=== PATIENT | female | born 2005 | race American Indian/Alaskan Native ===

== ENCOUNTER → 2024-11-23 12:46 | Outpatient (REF) | payer OTHER, SELFPAY | LOC: RAD 12:46 | PROVIDERS: ATTENDING PHYSICIAN Obstetrics & Gynecology | DX: O26.851 Spotting complicating pregnancy, first trimester (principal) | CPT/HCPCS: 76801; 76817 ==

== ENCOUNTER → 2024-12-07 11:02 | Outpatient (REF) | payer OTHER, SELFPAY | LOC: PNTC 11:02 | PROVIDERS: ATTENDING PHYSICIAN Advanced Practice Midwife | DX: Z36.0 Encounter for antenatal screening for chromosomal anomalies (principal); Z36.82 Encounter for antenatal screening for nuchal translucency | CPT/HCPCS: 36415; 76801; 76813 ==

== ENCOUNTER → 2025-02-01 13:12 | Outpatient (REF) | payer OTHER, SELFPAY | LOC: PNTC 13:12 | PROVIDERS: ATTENDING PHYSICIAN Advanced Practice Midwife | DX: Z34.90 Encounter for supervision of normal pregnancy, unspecified, unspecified trimester (principal); Z36.86 Encounter for antenatal screening for cervical length; Z36.2 Encounter for other antenatal screening follow-up | CPT/HCPCS: 76805; 76817 ==